=== PATIENT | female | born 1970 | race Caucasian/White ===

== ENCOUNTER 2018-02-16 09:42 | Emergency (ER) | payer OTHER ==
[2018-02-16 10:05] VITALS: BP 141/84
--- NOTE | 2018-02-16 10:11 | UC ---
Lower Extremity/Ankle HPI - HPI Summary HPI Summary: Twisted/rolled L foot last night while dancing, now cannot bear weight on it, has significant swelling and bruising. - History of Current Complaint Stated Complaint: LEFT FOOT INJURY Time Seen by Provider: 02/16/18 10:01 Hx Last Menstrual Period: IRREGULAR DUE TO MENOPAUSE ?: No Onset/Duration: Sudden Onset Severity Initially: Moderate Severity Currently: Moderate Pain Intensity: 9 Aggravating Factor(s): Standing, Ambulation Alleviating Factor(s): Rest Able to Bear Weight: No - Allergies/Home Medications Allergies/Adverse Reactions: Allergies Allergy/AdvReac Type Severity Reaction Status Date / Time No Known Allergies Allergy Verified 02/16/18 09:59 Home Medications: Home Medications Ibuprofen [Advil] 400 mg PO Q8H 02/16/18 [History Confirmed 02/16/18] Mini Pill-Progestin Only 1 each PO DAILY 02/16/18 [History] PMH/Surg Hx/FS Hx/Imm Hx Previously Healthy: Yes - Surgical History Surgical History: Yes Surgery Procedure, Year, and Place: APPENDECTOMY. 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 - Family History Known Family History: Negative: Blood Disorder - Social History Lives: With Family Alcohol Use: Occasionally Substance Use Type: None Smoking Status (MU): Light Every Day Tobacco Smoker Household Exposure Type: Cigarettes Review of Systems Constitutional: Negative Skin: Bruising Eyes: Negative ENT: Negative Respiratory: Negative Cardiovascular: Negative Gastrointestinal: Negative Genitourinary: Negative Motor: Negative Neurovascular: Negative Musculoskeletal: Arthralgia - L foot Neurological: Negative Psychological: Negative Is Patient Immunocompromised?: No All Other Systems Reviewed And Are Negative: Yes Physical Exam Triage Information Reviewed: Yes Appearance: Well-Nourished, Pain Distress - mild Vital Signs: Initial Vital Signs Temp 100.0 F 02/16/18 09:55 Pulse 89 02/16/18 09:55 Resp 17 02/16/18 09:55 BP 141/84 02/16/18 09:55 Pulse Ox 99 02/16/18 09:55 Vital Signs Reviewed: Yes Eye Exam: Normal Eyes: Positive: Conjunctiva Clear ENT Exam: Normal ENT: Positive: Normal ENT inspection, Hearing grossly normal, Pharynx normal Dental Exam: Normal Neck exam: Normal Neck: Positive: Supple, Nontender, No Lymphadenopathy Respiratory Exam: Normal Respiratory: Positive: Chest non-tender, Lungs clear, Normal breath sounds, No respiratory distress, No accessory muscle use Cardiovascular Exam: Normal Cardiovascular: Positive: RRR, No Murmur Musculoskeletal Exam: Other - marked swelling, tenderness, bruising over dorsum of foot. No tenderness over lateral ankle ligaments or distal fibula. Neurological Exam: Normal Neurological: Positive: Alert Psychological Exam: Normal Skin Exam: Normal Diagnostics - Radiology No standard instances Xray Interpretation: Positive (See Comments) - L 3rd metastarsal fracture nondisplaced; avulsion fracture base of 1st proximal metatarsal; Intraarticular fracture base of 1st distal phalanx Radiology Interpretation Completed By: ED Physician Lower Extremity Course/Dx - Differential Dx/Diagnosis Provider Diagnoses: Closed, nondisplaced L 3rd metastarsal fracture. avulsion fracture base of 1st proximal metatarsal closed & nondisplaced Intraarticular fracture base of 1st distal phalanx closed & nondisplaced. Elevated blood pressure due to pain Discharge - Sign-Out/Discharge Documenting (check all that apply): Patient Departure - Discharge Plan Condition: Stable Disposition: HOME Patient Education Materials: Foot Fracture in Adults (ED) Referrals: Elizabeth Merrill MD [Medical Doctor] - 4 Days Additional Instructions: Keep the splint on and completely dry until you see the orthopedist. Use crutches and don't bear any weight on your injured foot. Keep the part elevated and use ibuprofen as needed for pain. To arrange for local orthopedic follow-up, call [phone] first thing tomorrow morning. - Billing Disposition and Condition Condition: STABLE Disposition: Home
--- NOTE | 2018-02-16 10:59 | RAD ---
HISTORY: twisting injury yesterday COMPARISONS: None VIEWS: 3, Frontal, lateral, and oblique views of the left foot FINDINGS: BONE DENSITY: Normal. BONES: There is a transverse minimally displaced fracture of the base of the third metatarsal. There is a nondisplaced fracture of the medial aspect of the base of the proximal phalanx with articular extension. JOINTS: There is no arthropathy. ALIGNMENT: There is no dislocation. SOFT TISSUES: There is soft tissue swelling of the forefoot OTHER FINDINGS: None. IMPRESSION: 1. NONDISPLACED FRACTURE OF THE MEDIAL BASE OF THE FIRST PROXIMAL PHALANX. 2. MINIMALLY DISPLACED FRACTURE OF THE BASE OF THE THIRD METATARSAL.
== END 2018-02-16 10:55 | disposition home or self-care (01) ==
LOC: UCCORT 09:42
DX: S92.912A Unspecified fracture of left toe(s), initial encounter for closed fracture (principal); S92.332A Displaced fracture of third metatarsal bone, left foot, initial encounter for closed fracture; X50.0XXA Overexertion from strenuous movement or load, initial encounter; Y93.41 Activity, dancing; Y92.9 Unspecified place or not applicable; F17.210 Nicotine dependence, cigarettes, uncomplicated
CPT/HCPCS: 99212; G0463